=== PATIENT | female | born 1945 | race Hispanic/Latino ===

== ENCOUNTER → 2018-11-20 | Outpatient (CLI) | payer OTHER | END | disposition home or self-care (01) | LOC: RAH 10:43 | PROVIDERS: ATTEND Internal Medicine Cardiovascular Disease | DX: Z13.6 Encounter for screening for cardiovascular disorders (principal) | CPT/HCPCS: 75571 ==

== ENCOUNTER → 2019-01-18 | Outpatient (CLI) | payer OTHER ==
--- NOTE | 2019-01-08 11:49 | NUR ---
PT WAS A NO SHOW FOR EXAM ON THIS DATE
[~2019-01-18] VITALS: Ht 162.6 cm; Wt 77.6 kg
[~2019-01-18] MED LIST: REGADENOSON 0.4 MG/5 ML PF SYG IVP SCH
== END | disposition home or self-care (01) ==
LOC: SHCH 08:31
PROVIDERS: ATTEND Internal Medicine Cardiovascular Disease
DX: I25.10 Atherosclerotic heart disease of native coronary artery without angina pectoris (principal)
CPT/HCPCS: 78452; 93017; 96374; A9500 ×2; J2785

== ENCOUNTER 2019-02-16 06:06 | Day surgery (SDC) | payer OTHER ==
[2019-02-14 09:32] VITALS: BP 155/70
[2019-02-14 09:45] LABS: APPEARANCE,URINE Clear (CLEAR); BILIRUBIN,URINE Negative (NEGATIVE); COLOR,URINE Yellow (YELLOW); GLUCOSE, URINE (UA) 500 mg/dL (NEGATIVE); KETONES,URINE Negative (NEGATIVE); LEUKOCYTE ESTERASE ,URINE Small (NEGATIVE); NITRATE,URINE Negative (NEGATIVE); OCCULT BLOOD,URINE Negative (NEGATIVE); PH,URINE 5.5 (5.0-8.0); PROTEIN,URINE Negative (NEGATIVE)
[2019-02-14 09:45] LABS: BASOPHILS % (AUTO) 4.7 % (0.0-5.0); EOSINOPHILS % (AUTO) 2.3 % (0.0-8.0); HEMATOCRIT 38.7 % (36-48); LYMPHOCYTES % (AUTO) 27.8 % (21.0-51.0); MEAN CORPUSCULAR HEMOGLOBIN 31.3 pg (27.0-33.0); MEAN CORPUSCULAR HGB CONC 33.1 g/dL (32.0-36.0); MEAN CORPUSCULAR VOLUME 94.7 fL (79-99); MONOCYTES % (AUTO) 9.4 % (3.0-13.0); NEUTROPHILS % (AUTO) 55.8 % (40.0-77.0); PLATELET COUNT (AUTO) 190 K/uL (130-400); RED BLOOD CELL COUNT(AUTO) 4.09 MIL/uL (4.00-5.50); RED CELL DISTRIBUTION WIDTH 12.7 % (11.0-15.5); WHITE BLOOD COUNT (AUTO) 5.9 K/uL (4.8-10.8)
[2019-02-14 09:55] LABS: CREATININE 1.3 mg/dL (0.5-1.5); POTASSIUM 4.4 mmol/L (3.5-5.1)
[2019-02-14 09:56] LABS: BACTERIA,URINE Rare /HPF (None Seen); RBC,URINE 0-1 /HPF (0-1)
[2019-02-14 09:58] LABS: INR 1.15 (0.85-1.15); PARTIAL THROMBOPLASTIN TIME 33.2 SEC (26.3-35.5)
--- NOTE | 2019-02-15 15:25 | NUR ---
LABS ABNORMAL LABS CALLED TO SONU DEAN NP [employer] DES[employer] FOR DR. RÍOS. NO FURTHER ORDERS GIVEN AT THIS TIME. ORDERS WHERE GIVEN PREOP FOR FLUIDS
[2019-02-16] VITALS (11 sets, daily range): BP systolic 105–161; BP diastolic 47–67
[~2019-02-16] VITALS: Ht 160 cm; Wt 78.9 kg
[~2019-02-16 06:06] MED LIST changes: +AMLO5TAB9 PO; +ATOR20TA65 PO; +CARV12.511 PO; +ESOM20CA39 PO; +FENO160T16 PO; +HYDR100T27 PO; +INSU3INS3 SQ; +LOSA100T58 PO; +PREG100C PO; -REGADENOSON 0.4 MG/5 ML PF SYG IVP SCH; +SPIR25TA6 PO; +VITAMIN D
[2019-02-16] MEDS ORDERED: SODIUM CHLORIDE 0.9% 1000ML 1,000 ML IV SCH ×2 (07:00→08:45)
[2019-02-16] MEDS ORDERED: IOHEXOL-350 50ML VIAL IV ONE (07:11)
[2019-02-16] MEDS ORDERED: NITROGLYCERIN 5 MG/ML 10 ML VIAL IV ONE (07:11)
[2019-02-16] MEDS ORDERED: IOHEXOL 350 MG/ML 100ML INFUS..BTL IV ONE (07:11)
[2019-02-16] MEDS ORDERED: LIDOCAINE HCL 2% 20ML ONE (07:12)
[2019-02-16] MEDS ORDERED: MIDAZOLAM HCL 1 MG/ML 2ML VIAL ONE (07:39)
[2019-02-16] MEDS ORDERED: HYDRALAZINE HCL 20 MG/ML VIAL ONE (08:07)
== END 2019-02-16 12:40 | disposition home or self-care (01) ==
LOC: DAH 06:06
PROVIDERS: ATTEND Internal Medicine Cardiovascular Disease
DX: I25.118 Atherosclerotic heart disease of native coronary artery with other forms of angina pectoris (principal); I12.9 Hypertensive chronic kidney disease with stage 1 through stage 4 chronic kidney disease, or unspecified chronic kidney disease; E11.22 Type 2 diabetes mellitus with diabetic chronic kidney disease; N18.3 Chronic kidney disease, stage 3 (moderate); E11.40 Type 2 diabetes mellitus with diabetic neuropathy, unspecified; E78.5 Hyperlipidemia, unspecified; Z79.899 Other long term (current) drug therapy; Z90.49 Acquired absence of other specified parts of digestive tract; Z90.710 Acquired absence of both cervix and uterus; Z98.51 Tubal ligation status; Z98.890 Other specified postprocedural states; Z79.4 Long term (current) use of insulin; Z82.3 Family history of stroke; Z82.49 Family history of ischemic heart disease and other diseases of the circulatory system; Z83.3 Family history of diabetes mellitus
CPT/HCPCS: 36415; 71045; 80048; 81001; 82948 ×2; 85025; 85610; 85730; 93005; 93458; 96360; 96361; A4606; C1760; C1894; J0360; J1644; J2250; J3490; Q9965; Q9967 ×2; 99156; 99157

== ENCOUNTER → 2020-12-16 | Outpatient (CLI) | payer MEDICARE ==
[~2020-12-16] MED LIST changes: +ACET-66 PO; -AMLO5TAB9 PO; +ERGO2000 PO; +FURO20TA6 PO; -HYDR100T27 PO; -LOSA100T58 PO; -SPIR25TA6 PO; +TRAM50TA4 PO; -VITAMIN D
== END | disposition home or self-care (01) ==
LOC: SHCH 09:10
PROVIDERS: ATTEND Internal Medicine Cardiovascular Disease
DX: I73.9 Peripheral vascular disease, unspecified (principal)
CPT/HCPCS: 93925

== ENCOUNTER 2021-04-14 07:52 | Day surgery (SDC) | payer MEDICARE ==
[~2021-04-14] VITALS: Ht 162.6 cm; Wt 76.5 kg
[2021-04-14] VITALS (7 sets, daily range): BP systolic 130–190; BP diastolic 50–72
[~2021-04-14 07:52] MED LIST changes: -ACET-66 PO; +AMLO2.5T4 PO; +ASPI-1005 PO; -ATOR20TA65 PO; -CARV12.511 PO; +CHLO50TA PO; -FENO160T16 PO; -FURO20TA6 PO; -INSU3INS3 SQ; +INSU500I SQ; +LOSA100T58 PO; +MONT-39 PO; +PRAV20TA4 PO; -TRAM50TA4 PO
[2021-04-14] MEDS ORDERED: PROPOFOL 10 MG/ML 20ML VIAL IV ONE ×3 (10:21→11:00)
[2021-04-14] MEDS ORDERED: EPHEDRINE SULFATE 50 MG/ML AMPULE ONE (10:34)
== END 2021-04-14 11:55 | disposition home or self-care (01) ==
LOC: ENDO 07:52 → DAH 07:52 → ENDO 11:55
PROVIDERS: ATTEND Internal Medicine Gastroenterology
DX: R19.7 Diarrhea, unspecified (principal); Z20.822 Contact with and (suspected) exposure to COVID-19; K63.5 Polyp of colon; K74.69 Other cirrhosis of liver; K29.70 Gastritis, unspecified, without bleeding; K63.89 Other specified diseases of intestine; K57.30 Diverticulosis of large intestine without perforation or abscess without bleeding; K57.32 Diverticulitis of large intestine without perforation or abscess without bleeding; K21.9 Gastro-esophageal reflux disease without esophagitis; I10 Essential (primary) hypertension; E11.9 Type 2 diabetes mellitus without complications; E78.5 Hyperlipidemia, unspecified; Z79.899 Other long term (current) drug therapy; Z98.890 Other specified postprocedural states; Z79.82 Long term (current) use of aspirin; Z79.4 Long term (current) use of insulin; Z90.49 Acquired absence of other specified parts of digestive tract; Z90.710 Acquired absence of both cervix and uterus; Z98.51 Tubal ligation status; Z72.89 Other problems related to lifestyle
CPT/HCPCS: 43239; 45380; 82948 ×2; 87635; 88305; 88342; 93005; A4215 ×2; A4221; A4222; A4223; A4606; A4620; A4663; C9803; J2704 ×3; J3490

== ENCOUNTER → 2022-09-21 | Outpatient (CLI) | payer MEDICARE | END | disposition home or self-care (01) | LOC: SHCH 14:13 | PROVIDERS: ATTEND Internal Medicine Cardiovascular Disease | DX: I87.2 Venous insufficiency (chronic) (peripheral) (principal) | CPT/HCPCS: 93970 ==

== ENCOUNTER → 2023-05-19 | Outpatient (CLI) | payer MEDICARE ==
[~2023-05-19] MED LIST changes: -LOSA100T58 PO; +LOSA100T59 PO
== END | disposition home or self-care (01) ==
LOC: SHCH 15:34
PROVIDERS: ATTEND Internal Medicine Cardiovascular Disease
DX: I73.9 Peripheral vascular disease, unspecified (principal)
CPT/HCPCS: 93925

== ENCOUNTER → 2023-05-23 | Outpatient (CLI) | payer MEDICARE ==
[~2023-05-23] MED LIST changes: +REGADENOSON 0.4 MG/5 ML PF SYG IVP ONE
== END | disposition home or self-care (01) ==
LOC: SHCH 08:12
PROVIDERS: ATTEND Internal Medicine Cardiovascular Disease
DX: I25.10 Atherosclerotic heart disease of native coronary artery without angina pectoris (principal)
CPT/HCPCS: 78452; 96374; 93017; J2785; A9500 ×2

== ENCOUNTER → 2024-03-06 | Outpatient (CLI) | payer MEDICARE ==
[~2024-03-06] MED LIST changes: -ESOM20CA39 PO; +ESOM20CA51 PO; -REGADENOSON 0.4 MG/5 ML PF SYG IVP ONE
== END | disposition home or self-care (01) ==
LOC: SHCH 15:35
PROVIDERS: ATTEND Internal Medicine Cardiovascular Disease
DX: I70.293 Other atherosclerosis of native arteries of extremities, bilateral legs (principal)
CPT/HCPCS: 93925